=== PATIENT | female | born 1975 | race Caucasian/White ===

== ENCOUNTER 2017-08-09 05:42 | Day surgery (SDC) | payer BC ==
[~2017-08-09] VITALS: Ht 162.6 cm; Wt 62.6 kg
[~2017-08-09 05:42] MED LIST: LARISSIA-28 TA1 EACH PO
[2017-08-09] MEDS ORDERED: TAMIFLU75 MG PO (06:10)
[2017-08-09 06:11] VITALS: BP 116/64
[2017-08-09 09:10] VITALS: BP 107/71
[2017-08-09 09:45] VITALS: BP 112/50
== END 2017-08-09 09:45 | disposition home or self-care (01) ==
LOC: SDC 05:42
PROVIDERS: Urology
DX: R31.29 Other microscopic hematuria (principal); R10.31 Right lower quadrant pain; K59.09 Other constipation; R30.0 Dysuria; R35.0 Frequency of micturition; Z87.440 Personal history of urinary (tract) infections; Z82.49 Family history of ischemic heart disease and other diseases of the circulatory system; Z83.3 Family history of diabetes mellitus
CPT/HCPCS: 74420; 84703; C1758; J0690; J1100; J1580; J1885; J2250; J2405; J3010